=== PATIENT | female | born 1985 | race Caucasian/White ===

== ENCOUNTER 2018-05-09 09:27 | Day surgery (SDC) | payer BC ==
[~2018-05-09] VITALS: Ht 167.6 cm; Wt 43.5 kg
[2018-05-09] VITALS (9 sets, daily range): BP systolic 91–108; BP diastolic 50–62
[~2018-05-09 09:27] MED LIST: Dexamethasone 4mg/ml vial ONE; Midazolam 2mg/2ml Inj ONE; ORTHO TRI-CYCL1 EAC1 PO; Propofol 200mg/20ml IV ONE; fentaNYL 100 mcg/2 mL IV ONE
[2018-05-09] MEDS ORDERED: Kenalog-40 1ml Vial ONE (09:32)
[2018-05-09] MEDS ORDERED: Betadine 10% Oint 30gm TOPIC ONE (09:32)
[2018-05-09] MEDS ORDERED: Cocaine HCl 4% 4ml vial TOPIC ONE (09:32)
[2018-05-09] MEDS ORDERED: Lidocaine 1% 10mg/ml/Epi 0.005mg/ml 30ml vial INJ ONE (09:33)
[2018-05-09] MEDS ORDERED: Oxymetazoline 0.05% Na Spray 30ml NASAL ONE (09:33)
[2018-05-09] MEDS ORDERED: LEXAPRO10 MG ORAL (10:04)
[2018-05-09] MEDS ORDERED: Zemuron 50mg/5ml Inj IV ONE (10:32)
[2018-05-09] MEDS ORDERED: NS Irrig 1000ml ONE (11:00)
[2018-05-09] MEDS ORDERED: LR 1000ml ONE (11:00)
[2018-05-09] MEDS ORDERED: Sterile Water Irrig 1000ml IRRIG ONE (11:00)
--- NOTE | 2018-05-09 11:01 | Anethesia Preoperative Eval ---
Anesthesia Pre-op PMH/ROS General Date of Evaluation: May 09, 2018 Time of Evaluation: 10:18 Anesthesiologist: Barron ASA Score: ASA 2 Mallampati Score Class I : Soft palate, uvula, fauces, pillars visible Class II: Soft palate, uvula, fauces visible Class III: Soft palate, base of uvula visible Class IV: Only hard plate visible Mallampati Classification: Class I Surgeon: Robbi Diagnosis: septal deviation hypertrophied turbinates Surgical Procedure: septoplasty, bilateral inf turbonate reduction, nasal reconstruction Anesthesia History: other - delayed awakening Family History: no anesthesia problems Allergies: Coded Allergies: CEPHALOSPORINS (Verified Allergy, Intermediate, 05/09/18) HIVES,RASH AND NAUSEA ERYTHROMYCIN BASE (Verified Allergy, Intermediate, 05/09/18) HIVES,RASH AND NAUSEA Medications: see eMAR Past Medical History Gastrointestinal/Genitourinary: Reports: other - nausea with headaches Neurologic/Psychiatric: Reports: depression/anxiety, other - migraine headache with nausea PSxH Narrative: septoplasty Anesthesia Pre-op Phys. Exam Physician Exam Last Vital Signs Date Time Temp Pulse Resp B/P (MAP) Pulse Ox O2 Delivery O2 Flow Rate FiO2 05/09/18 10:06 98.2 60 20 99/61 (74) 99 98.2 05/09/18 10:04 Room Air Constitutional: NAD Neurologic: other Cardiovascular: RRR Respiratory: CTA Airway Exam Mallampati Score: Class I MO: full Neck: full ROM: full Anesthesia Pre-op A/P Labs test negative Urine Test Test 05/09/18 09:35 Urine HCG, Qualitative Negative (NEGATIVE) Risk Assessment & Plan Assessment: ASA 2 Plan: GETA PONV prophylasxis Pre-Antibiotics Drug: levofloxacin in OR at anesthesia induction, infusion over 30 min Given Within 1 Hr of Incision: Yes - please refer to anesthesia record Josy Mart M.D. May 09, 2018 11:01
[2018-05-09] MEDS ORDERED: Hydromorphone 0.5mg/0.5ml inj IVP PRN (11:15)
[2018-05-09] MEDS ORDERED: fentaNYL 100 mcg/2 mL IV PRN (11:15)
[2018-05-09] MEDS ORDERED: Metoclopramide 10mg/2ml Inj IVP PRN (11:15)
[2018-05-09] MEDS ORDERED: Atropine Inj 1mg/10ml Syr IV PRN (11:15)
[2018-05-09] MEDS ORDERED: Bacitracin Oint 15gm Tube TOPIC ONE (11:17)
--- NOTE | 2018-05-09 11:20 | Pre-Procedure Note/Attestation ---
Pre-Procedure Note/Attestation Complete Prior to Procedure Planned Procedure: not applicable Procedure Narrative: Septoplasty, bilateral inferior turbinectomies with intramural coagulation, repair of collapsed internal valve with possible gortex or cartilage implantl, possible repair fo collapsed left external valve Indications for Procedure Pre-Operative Diagnosis: septal deviation, bilateral hypertrophied inferior turbinates, collapsed left internal and external valve Attestation I attest that I discussed the nature of the procedure; its benefits; risks and complications; and alternatives (and the risks and benefits of such alternatives ), prior to the procedure, with the patient (or the patient's legal tour sales representative). I attest that, if there was a reasonable possibility of needing a blood transfusion, the patient (or the patient's legal tour sales representative) was given the [place] [employer] [facility] [employer] [facility] standardized written summary, pursuant to the Zach Valeri Blood Safety Act ([place] Health and Safety Code # 1645, as amended). I attest that I re-evaluated the patient just prior to the surgery and that there has been no change in the patient's H&P, except as documented below: MARY PRAKASH May 09, 2018 11:20
[2018-05-09] MEDS ORDERED: Propofol 200mg/20ml IV ONE ×4 (11:42→12:36)
[2018-05-09] MEDS ORDERED: Dexamethasone 4mg/ml vial ONE (11:43)
[2018-05-09] MEDS ORDERED: Lidocaine 1% 10mg/ml/EPI 0.01mg/ml 50ml INJ ONE (12:01)
[2018-05-09] MEDS ORDERED: fentaNYL 100 mcg/2 mL IV ONE (12:10)
[2018-05-09] MEDS ORDERED: Esmolol 100mg/10ml Inj ONE (12:13)
[2018-05-09] MEDS ORDERED: Neostigmine 1mg/ml 10ml Inj ONE (13:45)
[2018-05-09] MEDS ORDERED: Glycopyrrolate 0.2mg/ml 1ml Vial ONE (13:45)
--- NOTE | 2018-05-09 14:25 | Brief Operative Note ---
Immediate Post Operative Note Operative Note Pre-op Diagnosis: septal deviation, bilateral hypertrophied inferior turbinates, collapsed left internal and external valve Procedure: septoplasty, bilateral inferior turbinectomies with intramural coagulation, repair of collapsed left internal valve with rotation advancement flap Post-op Diagnosis: same as pre-op - minus collapsed left external valve Surgeon: Robert Culp M.D. Anesthesiologist: Barron Anesthesia: MAC Specimen: none Complications: none Condition: stable Fluids: ringers lactate Estimated Blood Loss: minimal Drains: none Packing: [email or web address] Implant(s) used?: ROBERT Staples May 09, 2018 14:25
--- NOTE | 2018-05-09 14:42 | Immediate Post-Op Evaluation ---
Immediate Post-Op Evalulation Immediate Post-Op Evalulation Procedure: septoplasry, bill inf turbinectomy, repair of L nasal valve, reconstr advan Date of Evaluation: May 09, 2018 Time of Evaluation: 14:40 IV Fluids: 500 Blood Products: none Estimated Blood Loss: 20 Urinary Output: nr Blood Pressure Systolic: 108 Blood Pressure Diastolic: 62 Pulse Rate: 66 Respiratory Rate: 17 O2 Sat by Pulse Oximetry: 100 Temperature (Fahrenheit): 97.1 Pain Score (1-10): 0 Nausea: No Vomiting: No Patient Status: awake, reacts Hydration Status: adequate Drug: levoquin Given Within 1 Hr of Incision: Yes Time Given: 11:15 Josy Mart M.D. May 09, 2018 14:42
--- NOTE | 2018-05-09 17:17 | 48 Hour Post Anesthesia Eval ---
Post Anesthesia Evaluation Procedure: septoplasry, bill inf turbinectomy, repair of L nasal valve, reconstr advan Date of Evaluation: May 09, 2018 Time of Evaluation: 15:00 Blood Pressure Systolic: 102 0: 59 Pulse Rate: 64 Respiratory Rate: 18 Temperature (Fahrenheit): 98.4 O2 Sat by Pulse Oximetry: 99 Airway: patent Nausea: No Vomiting: No Pain Intensity: 0 Hydration Status: adequate Mental Status/LOC: patient returned to baseline Follow-up care needed: N/A Josy Mart M.D. May 09, 2018 17:17
--- NOTE | 2018-05-11 23:30 | Operative Note - Dictated ---
DATE OF OPERATION: 05/09/2018 SURGEON: Robert Culp M.D. ANESTHESIOLOGIST: Josy Mart M.D. PREOPERATIVE DIAGNOSES: 1. Septal deviation. 2. Bilateral hypertrophied inferior turbinates. 3. Left internal valve collapse and possible left external valve collapse. POSTOPERATIVE DIAGNOSES: 1. Septal deviation. 2. Bilateral hypertrophied inferior turbinates. 3. Left internal valve collapse. PROCEDURE: 1. Septoplasty. 2. Bilateral inferior turbinectomies with intramural coagulation. 3. Repair of collapsed left internal valve with rotation advancement flap. INDICATION FOR SURGERY: The patient is a 32-year-old female, who complains of persistent nasal obstruction despite having prior surgery. She has been placed on multiple medications without relief of her nasal obstruction and she is now being brought to the operating room for surgical repair. Findings at surgery revealed the nasal pyramid still rotated to the right, but much improved from the prior surgery. There was slight collapse of the left external nasal valve and significant collapse of left internal valve. Septum was noted to be deviated to the left superiorly and this combined with the patient's bilateral hypertrophied inferior turbinates created left greater than right nasal airway obstruction. DESCRIPTION OF PROCEDURE: The patient was brought to the operating room while premedicated and had received preoperative antibiotics. She was then placed in supine position on the operating room table. A sterile marking pen was used to demarcate the area of right external nasal deformity. After the patient underwent satisfactory endotracheal intubation, she was given IV sedation. The nasal cavity was then sprayed with one 0.25% Jose Manuel-Synephrine. A sterile Q-tip saturated Betadine was used to sterilize the intranasal cavity. Approximately 14 mL of 1% Xylocaine with 1:100,000 epinephrine were used to inject the nasal and septal frameworks. Less than 200 mg of cocaine were used in intranasal packing. The patient was then prepped and draped in usual sterile fashion. After a suitable period of vasoconstriction, the packing was removed. A #15 blade was used to make an incision between the upper and lower lateral cartilage, carried to the septal angle, then along the left inferior aspect of the septum. A left mucoperichondrial and mucoperiosteal flap was eventually elevated running into significant scar tissue and there was significant cartilage and bone. That portion of overriding perpendicular plate of the ethmoid and vomer bone was fractured in the midline using . Re-examination multiple times revealed the reduction was holding and so no further tissue was removed. Further examination still revealed the very anterior aspect of the mid cartilaginous septum was so deviated to left contributing to the obstruction of the left nasal cavity. This was incised in strips, throughout its attachments and removed from the field of operation. Extensive undermining was performed over the dorsum running into significant scar tissue. That portion of the nose was deviated towards the right, was able to be taken down sharply. The patient had a much straighter nasal airway without tension on the right side of the internal valve and mid vault area. The incision between the left upper and lower lateral cartilage was then incised where it met the septum vertically and this was connected with a horizontal incision and then the remaining attachments were freed allowing the flap to be advanced laterally and anteriorly. This was then sewn in place with interrupted sutures of 4-0 plain. Bilateral intramural coagulation of both inferior turbinates was then performed. An incision was made in the undersurface of both inferior turbinates, mucosa stripped the underlying bone. The inferior turbinates were then outfractured and small piece of bone removed from the pocket. Re-examination still revealed a slight collapse of the left external valve. A piece of 2 mm [place], which had been previously harvested to fill the area of collapse was then brought in the field of operation and placed over of the area of deformity. This coincided with a buckling of the left lower lateral cartilage. The implant was placed in position and found to make the external valve collapse worse and so was removed from the field of operation. Re-examination now revealed the patient to have a good bilateral nasal airway. All blood was suctioned from the nose and nasopharynx area. A 4-0 plain was used to splint the septum as well as to close the septal incision and to close the in-between cartilage incision. Telfa coated with Betadine ointment was secured intranasally with 3-0 silk. An external pressure dressing consisting of Mastisol, paper adhesive tape, and a cast was secured in place and the procedure was terminated. The patient tolerated the procedure well and left the operating room in satisfactory condition. Estimated blood loss was 30 mL. Sponge and needle count were correct. Robert Melissa Culp DR: Jhoan JOB#: [id number] CC: MARYLOU
--- NOTE | 2018-05-12 05:30 | Operative Note - Dictated ---
DATE OF OPERATION: 05/09/2018 NOTE: INCOMPLETE DICTATION SURGEON: Robert Culp M.D. ANESTHESIOLOGIST: ANESTHESIA: General. PREOPERATIVE DIAGNOSES: 1. Septal deviation. 2. Obstructing left internal valve and possible external nasal valve. 3. Bilateral hypertrophied inferior turbinates. POSTOPERATIVE DIAGNOSES: 1. Septal deviation. 2. Bilateral hypertrophied inferior turbinates. 3. Left internal valve collapse. INDICATION FOR SURGERY: The patient is a 32-year-old, female, who complained of nasal airway obstruction which is partially relieved by prior surgery. She was placed on various medications without relief, now she is being brought to the operating room for surgical repair. Examination revealed the external nose was deviated to the right in a C-shaped deformity. There is collapse of the left external valve to less extent and a significant collapse of the left internal valve. The septum was noted to be deviated to the left very superiorly and this combined the patient bilateral hypertrophied inferior turbinates creating bilateral nasal airway obstruction. PROCEDURE: The patient was brought to the operating room while premedicated and having received preoperative antibiotics. A sterile marking pen had been used to demarcate the area of nasal pyramid deformity which is curving to the right. The patient then underwent satisfactory endotracheal intubation. A 0.25% Jose Manuel-Synephrine was used to sterilize the intranasal cavity. A sterile Q-tip sets of Betadine were used to sterilize the intranasal cavity. Robert Culp M.D. DR: Jhoan JOB#: [id number] CC:
== END 2018-05-09 10:20 | disposition home or self-care (01) ==
LOC: SUR 09:27
DX: J34.2 Deviated nasal septum (principal); J34.3 Hypertrophy of nasal turbinates; M95.0 Acquired deformity of nose; Q67.6 Pectus excavatum; F32.9 Major depressive disorder, single episode, unspecified; F41.9 Anxiety disorder, unspecified; G43.909 Migraine, unspecified, not intractable, without status migrainosus; Z88.1 Allergy status to other antibiotic agents
CPT/HCPCS: 14060; 30520; 30802; 81025; J1100; J1956; J2250; J2405; J2704; J2710; J3010; J7120; 94003; 94150